=== PATIENT | female | born 1935 | race Caucasian/White ===

== ENCOUNTER → 2017-03-10 | Outpatient (CLI) | payer MEDICARE, OTHER, MEDICAID ==
[~2017-03-10] MED LIST: ACET325T51 PO; BENZ100C97 PO; CALC600T11 PO; CARB1TAB PO; DABI150C PO; DUONEB INH; ESCI10TA47 PO; FISH OIL OMEGA1 EAC1 PO; FURO20TA6 PO; IBUP-1724 PO; NYST60PO11 TOP; ONDA4TAB4 PO; TRAM50TA4 PO; TYLENOL ARTHRITIS PO; [UNRECOGNIZED DRUG - CODE] PO
--- NOTE | 2017-03-11 11:49 | ECHOF ---
DATE OF PROCEDURE March 10, 2017 This is a two-dimensional echo with spectral Doppler, color-flow and M-mode. It was obtained in a patient with atrial fibrillation. Left atrial dimension is at the upper limits of normal. Left ventricle end- diastolic dimension is at the upper limits of normal. LV systolic function is normal with ejection fraction of about 55%. Left ventricular wall thickness is normal. Right atrium is normal. Right ventricle is normal. Aortic root dimension is normal. Mitral valve is morphologically normal with mild mitral regurgitation. Aortic valve is a trileaflet structure with no stenosis or insufficiency. Tricuspid valve shows mild tricuspid regurgitation with normal estimated pulmonary artery systolic pressure of 32. Pulmonary valve shows trace of pulmonary insufficiency. There is no pericardial effusion. IMPRESSION 1. Normal LV systolic function with ejection fraction of 55%. 2. Mild mitral regurgitation. 3. Mild tricuspid regurgitation with normal estimated pulmonary artery systolic pressure of 32. 4. Trace of pulmonary insufficiency. MTDD
== END ==
LOC: IMA 13:26
PROVIDERS: ATTEND Internal Medicine Cardiovascular Disease
DX: I25.10 Atherosclerotic heart disease of native coronary artery without angina pectoris (principal); I08.1 Rheumatic disorders of both mitral and tricuspid valves; I48.0 Paroxysmal atrial fibrillation; I10 Essential (primary) hypertension
CPT/HCPCS: 93306